=== PATIENT | male | born 1990 | race Caucasian/White ===

== ENCOUNTER 2023-12-16 20:32 | Emergency (ER) | payer OTHER, SELFPAY ==
[2023-12-16 20:33] VITALS: BP 107/70
--- NOTE | 2023-12-16 20:47 | ED.GENMED ---
History of Present Illness
<Meredith Ortiz PA-C - Last Filed: 12/17/23 00:50>
General
Chief Complaint: Musculo-Skeletal Complaint
Source: patient
Exam Limitations: none
Time Seen by Provider: 12/16/23 20:38
Nursing documentation reviewed up to this point in time: agreed with
Travel History
Have you had any contact with someone who has COVID-19?: No
Do you have any symptoms of coronavirus? Fever > 100 degrees, chills, cough, shortness of breath, sore throat, loss of taste or smell, muscle aches, or headache?: No
History of Present Illness
History of Present Illness:
Patient is a 33-year-old male with history of eczema presenting for evaluation of atraumatic right toe pain. Patient states that he noticed some pain and swelling in his right first toe on Monday that is recently worsening over the past few
days. He denies any trauma to the toe or recent falls. He denies any fever, chills. He denies any chest pain, shortness of breath, GI symptoms, or urinary symptoms.
He does endorse a similar episode that occurred about a year ago which resolved on its own after few days.
Patient is a social alcohol drinker. He denies any IV drug use or history of IV drug use.
Past History
<Meredith Ortiz PA-C - Last Filed: 12/17/23 00:50>
Past History
ED Past Medical History: Other (Eczema)
Social History
Tobacco: Non-smoker
Phy Exam
<Meredith Ortiz PA-C - Last Filed: 12/17/23 00:50>
Physical Exam
Physical Exam:
General: Well appearing and non-toxic
Vitals: Mildly tachycardic, otherwise vital signs stable, afebrile
HEENT: protecting airway
Neck: appears supple
CV: Regular rate and rhythm, heart sounds normal, no evidence of cyanosis
Resp: No evidence of respiratory stress, lungs clear
Abd: Non-distended
Extremities: Significant tenderness of right great toe with erythema and edema most significant MTP joint
Neuro: alert and oriented x 3; grossly intact
Psych: Normal affect
Skin: Intact, no rashes
Course
<Meredith Ortiz PA-C - Last Filed: 12/17/23 00:50>
Orders/Labs/Results
Orders:
Orders
12/16/23 20:52
Toes 2 Views, Right [CR Toe(s) Min 2 Vw Right] Urgent
Comment:
Reason For Exam: atraumatic right great toe pain and swelling
12/16/23 21:37
Cast Shoe Right-Treatment ONCE
Colchicine 1.2 mg PO NOW STA
Naproxen [Naprosyn] 500 mg PO NOW STA
Vital Signs
Initial and Last Documented VS:
Initial Vital Signs
Temp Pulse Resp BP Pulse Ox
98.7 F 102 18 107/70 98
12/16/23 20:33 12/16/23 20:33 12/16/23 20:33 12/16/23 20:33 12/16/23 20:33
Last Documented Vital Signs
Temp Pulse Resp BP Pulse Ox
98.7 F 102 18 107/70 98
12/16/23 20:33 12/16/23 20:33 12/16/23 20:33 12/16/23 20:33 12/16/23 20:33
<Gio Peterson DO - Last Filed: 12/16/23 21:58>
Orders/Labs/Results
Orders:
Orders
12/16/23 20:52
Toes 2 Views, Right [CR Toe(s) Min 2 Vw Right] Urgent
Comment:
Reason For Exam: atraumatic right great toe pain and swelling
12/16/23 21:37
Cast Shoe Right-Treatment ONCE
Colchicine 1.2 mg PO NOW STA
Naproxen [Naprosyn] 500 mg PO NOW STA
Vital Signs
Initial and Last Documented VS:
Initial Vital Signs
Temp Pulse Resp BP Pulse Ox
98.7 F 102 18 107/70 98
12/16/23 20:33 12/16/23 20:33 12/16/23 20:33 12/16/23 20:33 12/16/23 20:33
Last Documented Vital Signs
Temp Pulse Resp BP Pulse Ox
98.7 F 102 18 107/70 98
12/16/23 20:33 12/16/23 20:33 12/16/23 20:33 12/16/23 20:33 12/16/23 20:33
<Meredith Ortiz PA-C - Last Filed: 12/17/23 00:50>
MDM/Problems Addressed
Differential Diagnosis Includes:
Gouty arthritis, cellulitis, rheumatoid arthritis, Lyme, septic arthritis, fracture, toe sprain
MDM/Problems Addressed:
Patient is a 33 year old male presenting with atraumatic right great toe pain and swelling worsening over the past 3 days. No trauma or recent falls. No fever, chills, systemic symptoms. Patient reports similar episode about a year ago which
resolved without treatment. Patient has stable vital signs, he is afebrile. He is nontoxic appearing. Physical exam as documented above. There is significant pain with erythema and swelling of right great toe. History and clinical picture very
consistent with inflammatory arthritis - likely acute gout flare. Very low suspicion for infectious process. Will check xray.
Xray negative for acute abnormalities. Will treat patient for gout flare. Patient is in rinvoq for eczema and would like to avoid steroids for now which is feel is reasonable. Will treat with colchicine and NSAIDs, cast shoe for comfort. Stable for
discharge with close return precautions and primary care follow-up. Patient comfortable with plan. All questions answered.
Chronic conditions affecting care:
Eczema
Acute Exacerbation and/or Progression of Chronic Illness:
Acute gout flare
<Meredith Ortiz PA-C - Last Filed: 12/17/23 00:50>
*Radiology
Radiology exam reviewed: preliminary read by ED provider
*Pulse Oximetry
Patient hypoxic: no
*Warehouse Stocker Interpretation
Rate: Warehouse Stocker- N/A
*Critical Care Note
Total Time (30-74mins, 75-104mins- exclusive of procedures): Not Applicable
ED Attending Note
<Meredith Ortiz PA-C - Last Filed: 12/17/23 00:50>
-
Portions of this chart may have been created with voice recognition software.� Occasional wrong word or��sound alike� substitutions may have occurred due to the inherent limitations of voice recognition software.
<Gio Peterson DO - Last Filed: 12/16/23 21:58>
ED Attending Note
Patient seen and examined by attending physician: Yes
I performed the substantive portion of visit, reviewed & personally made and approve the management plan that is documented in note by myself or YESENIA.: Yes
ED Attending Note:
Seen with PA examined independently looks like gouty arthropathy swollen red toe he is on a biologic previously had a reaction to steroids he like to hold off on steroids I think is reasonable,
Discharge Plan
Departure
Patient Disposition: Home (Routine Discharge)
Date of Disposition: 12/16/23
Time of Disposition: 21:44
Patient with high blood pressure during this ER visit?: No
Covid-19: Not Applicable
Discharge Problem:
Gouty arthritis of right great toe
Instructions: Lifestyle Changes to Manage Gout, Gout (DC)
Prescriptions:
New
colchicine 0.6 mg tablet
0.6 mg PO BID 4 Days Qty: 8 0RF
Rx Instructions:
Or until flare resolves
No Action
cyclosporine modified 50 mg capsule
150 mg PO BID Qty: 180 1RF
cyproheptadine 4 mg tablet
4 mg PO TID Qty: 30 0RF
amoxicillin-pot clavulanate 875-125 mg tablet
1 tab PO BID Qty: 14 0RF
Activity Restrictions/Additional Instructions:
- Return to the emergency department for any high fevers, severe fatigue, intractable pain, persistent nausea/vomiting, chest pain, shortness of breath, worsening current symptoms, or any other concerns
-You should take the colchicine twice a day until the flare resolves. You should also take Aleve 500 mg twice a day for the next 7 to 10 days.
-As discussed�you should follow-up with your primary care provider next week to ensure symptoms are improving
Interventions
Interventions:
*Risk Screen - Suicide Last Done: 12/16/23 20:33
*General Assessment Last Done: 12/16/23 20:33
*Neglect/Abuse Screening Last Done: 12/16/23 20:33
ED- Fall Risk Assessment Last Done: 12/16/23 22:24
*ED COVID-19 Vaccine History Last Done: 12/16/23 20:33
*Nursing Disposition Last Done: 12/16/23 22:24
ED-Musculoskeletal Assessment Last Done: 12/16/23 21:40
Discharge Date and Time
Discharge Date/Time: 12/16/23 22:24
[2023-12-16] MEDS: NAPROSYN 500 MG PO (21:50)
[2023-12-16] MEDS: COLCHICINE 1.19999999999999996 MG PO (21:50)
== END 2023-12-16 22:24 | disposition home or self-care (01) ==
LOC: EMR 20:32
PROVIDERS: EMERGENCY PHYSICIAN Emergency Medicine
DX: M10.9 Gout, unspecified (principal); M79.674 Pain in right toe(s); M25.474 Effusion, right foot; M19.071 Primary osteoarthritis, right ankle and foot; L30.9 Dermatitis, unspecified; Z88.8 Allergy status to other drugs, medicaments and biological substances
CPT/HCPCS: 99283; 73660